=== PATIENT | male | born 1960 | race African-American/Black ===

== ENCOUNTER 2016-05-18 16:57 | Emergency (ER) | payer BC, OTHER ==
[~2016-05-18] VITALS: Ht 175.3 cm; Wt 70.3 kg
[2016-05-18 17:08] VITALS: BP 136/76
[2016-05-18] MEDS: Cyclobenzaprine 10mg Tab ORAL ONE ×2 (17:20→17:22)
[2016-05-18] MEDS ORDERED: IBUPROFEN600 MG ORAL (17:26)
[2016-05-18] MEDS ORDERED: CYCLOBENZAPRINE10 MG ORAL (17:26)
[2016-05-18 17:42] VITALS: BP 136/76
--- NOTE | 2016-05-18 21:33 | Emergency Room Report ---
History of Present Illness General Chief Complaint: Lower Back Pain or Injury Source: Patient Present Illness HPI The patient is a 56-year-old male presenting with lower back pain which began today. The patient states that he was changing his tire and performing a twisting motion when he felt lower back pain which is described as an 8/10 dull ache it is worse with movement. The patient denies prior injury to the back and denies any numbness or tingling. The patient denies any other symptoms Allergies: Coded Allergies: PENICILLINS (Verified Allergy, Unknown, 05/18/16) Patient History Past Medical History: see triage record Pertinent Family History: none Reviewed Nursing Documentation: PMH: Agreed, PSxH: Agreed Nursing Documentation-PMH Past Medical History: No Stated History Review of Systems All Other Systems: negative except mentioned in HPI Physical Exam Vital Signs Date Time Temp Pulse Resp B/P Pulse Ox O2 Delivery O2 Flow Rate FiO2 05/18/16 17:00 99.0 76 20 136/76 100 Room Air Sp02 EP Interpretation: reviewed, normal General Appearance: no apparent distress, alert, GCS 15, non-toxic Head: normocephalic, atraumatic Eyes: bilateral eye PERRL, bilateral eye normal inspection Neck: full range of motion, supple/symm/no masses Musculoskeletal: back normal, digits/nails normal, gait/station normal, normal range of motion, tender - TTP over bilat Lumbar paraspinous muscles Neurologic: alert, oriented x3, responsive, motor strength/tone normal, sensory intact, normal gait, speech normal Psychiatric: judgement/insight normal, memory normal, mood/affect normal, no suicidal/homicidal ideation Skin: normal color, no rash, warm/dry, well hydrated Medical Decision Making PA Attestation Dr. Marley is my supervising physician. Patient management was discussed with my supervising physician Diagnostic Impression: Primary Impression: Low back strain Qualified Codes: S39.012A - Strain of muscle, fascia and tendon of lower back , initial encounter ER Course The patient is a 56-year-old male presenting with lower back pain which began today. Ddx considered include but not limited to lumbar strain, degenerative disease, sprain, muscle spasm PE: vitals WNL. NAD. Back: No obvious deformity. No midline tenderness. No step-offs. TTP over bilat paraspinous muscles. Gait normal. FulL AROM The pt will be DC'ed home with prescription for motrin and flexeril. ER precautions given. Last Vital Signs Date Time Temp Pulse Resp B/P Pulse Ox O2 Delivery O2 Flow Rate FiO2 05/18/16 17:42 99.0 20 136/76 100 Room Air 05/18/16 17:08 83 Status: improved Disposition: HOME, SELF-CARE Condition: Improved Scripts Cyclobenzaprine Hcl* (FLEXERIL*) 10 Mg Tablet 10 MG ORAL THREE TIMES A DAY, #15 TAB Prov: KALA FLETCHER 05/18/16 Ibuprofen* (MOTRIN*) 600 Mg Tablet 600 MG ORAL Q8H Y for For Pain, #30 TAB 0 Refills Prov: KALA FLETCHER 05/18/16 Referrals: NOT CHOSEN [facility]/,REFERRING (PCP) Patient Instructions: Back Pain, Adult Additional Instructions: I discussed my findings with the patient. All questions and concerns have been answered. Treatment and medication compliance have been addressed. I advised the patient that they need to follow up with PMD in 3-5 days. Return to ED if pain remains or worsens, numbness or tingling occurs, new rash is noticed, fever is noticed, or if needed for any reason. Patient verbalized understanding of discharge instructions. KALA FLETCHER May 18, 2016 21:33
== END 2016-05-18 17:42 | disposition home or self-care (01) ==
LOC: EMR 17:29
DX: S39.012A Strain of muscle, fascia and tendon of lower back, initial encounter (principal); Z88.0 Allergy status to penicillin; X50.1XXA Overexertion from prolonged static or awkward postures, initial encounter; Y92.9 Unspecified place or not applicable; Y99.8 Other external cause status
CPT/HCPCS: 99284

== ENCOUNTER 2016-05-23 15:54 | Emergency (ER) | payer BC, OTHER ==
[~2016-05-23] VITALS: Ht 172.7 cm; Wt 70.3 kg
[~2016-05-23 15:54] MED LIST: CYCLOBENZAPRINE10 MG ORAL; IBUPROFEN600 MG ORAL
[2016-05-23 16:11] VITALS: BP 93/60
[2016-05-23] MEDS ORDERED: TRAMADOL HCL50 MG ORAL (16:38)
[2016-05-23] MEDS ORDERED: ROBAXIN-750750 MG PO (16:38)
--- NOTE | 2016-05-23 16:53 | Emergency Room Report ---
History of Present Illness General Chief Complaint: Back Injury Source: Patient Present Illness HPI The patient is a 56-year-old male presenting for lower back pain which began one week prior. The injury was sustained while performing a twisting motion while bending over. The patient was seen in this emergency department and discharged with a prescription for Motrin and Flexeril which the patient states has not been helping. The pain is a 10 out of 10 dull ache localized to the lower back and is worse with movements such as bending over or twisting. The patient denies any numbness or tingling of the back or lower extremities. The patient denies any other symptoms Allergies: Coded Allergies: PENICILLINS (Verified Allergy, Unknown, 05/18/16) Patient History Past Medical History: see triage record Pertinent Family History: none Reviewed Nursing Documentation: PMH: Agreed, PSxH: Agreed Nursing Documentation-PMH Past Medical History: No Stated History Review of Systems All Other Systems: negative except mentioned in HPI Physical Exam Vital Signs Date Time Temp Pulse Resp B/P Pulse Ox O2 Delivery O2 Flow Rate FiO2 05/23/16 16:06 98.1 62 16 93/60 98 Room Air Sp02 EP Interpretation: reviewed, normal General Appearance: no apparent distress, alert, GCS 15, non-toxic Head: normocephalic, atraumatic Eyes: bilateral eye PERRL, bilateral eye normal inspection ENT: hearing grossly normal, normal pharynx, normal voice Musculoskeletal: normal inspection, digits/nails normal, gait/station normal, normal range of motion, tender - TTP over lumbar paraspinous muscles Neurologic: alert, oriented x3, responsive, motor strength/tone normal, sensory intact, speech normal Psychiatric: judgement/insight normal, memory normal, mood/affect normal, no suicidal/homicidal ideation Skin: normal color, no rash, warm/dry, well hydrated Lymphatic: no adenopathy Medical Decision Making PA Attestation Dr. Manrique is my supervising physician. Patient management was discussed with my supervising physician Diagnostic Impression: Primary Impression: Low back strain ER Course The patient is a 56-year-old male presenting for lower back pain which began one week prior. Ddx considered include but not limited to lumbar strain, degenerative disease, disc herniation PE: Vitals WNL. NAD Back: No obvious deformity. No midline tenderness. + bilat lumbar paraspinal muscle tenderness. Full active range of motion. No CVA tenderness. No lesions , abrasions or ecchymosis seen. The patient states that he is driving and does not want to take any medications in the ER. The patient will be discharged home with a prescription for Robaxin and tramadol. Heat therapy instructions are given and the patient will followup with primary care physician. Physical therapy discussed. Last Vital Signs Date Time Temp Pulse Resp B/P Pulse Ox O2 Delivery O2 Flow Rate FiO2 05/23/16 16:11 98.1 80 16 93/60 98 Room Air Status: improved Disposition: HOME, SELF-CARE Condition: Improved Scripts Methocarbamol* (ROBAXIN-750*) 750 Mg Tablet 750 MG PO TID, #21 TAB 0 Refills Prov: KALA FLETCHER 05/23/16 Tramadol Hcl* (ULTRAM*) 50 Mg Tablet 50 MG ORAL Q6H Y for For Pain, #15 TAB 0 Refills Prov: [email or web address] 05/23/16 Patient Instructions: Back Pain, Adult, Heat Therapy Additional Instructions: I discussed my findings with the patient. All questions and concerns have been answered. Treatment and medication compliance have been addressed. I advised the patient that they need to follow up with PMD in 3-5 days. Return to ED if pain remains or worsens, numbness or tingling occurs, new rash is noticed, fever is noticed, or if needed for any reason. Patient verbalized understanding of discharge instructions. KALA FLETCHER May 23, 2016 16:53
[2016-05-23 16:59] VITALS: BP 93/60
== END 2016-05-23 17:00 | disposition home or self-care (01) ==
LOC: EMR 16:36
DX: S39.012A Strain of muscle, fascia and tendon of lower back, initial encounter (principal); X50.1XXA Overexertion from prolonged static or awkward postures, initial encounter; Y92.89 Other specified places as the place of occurrence of the external cause; Y99.9 Unspecified external cause status; Z88.0 Allergy status to penicillin
CPT/HCPCS: 99282

== ENCOUNTER 2016-06-03 07:10 | Emergency (ER) | payer BC, OTHER ==
[~2016-06-03] VITALS: Ht 172.7 cm; Wt 71.7 kg
[~2016-06-03 07:10] MED LIST changes: +ROBAXIN-750750 MG PO; +TRAMADOL HCL50 MG ORAL
[2016-06-03 07:31] VITALS: BP 117/86
[2016-06-03] MEDS ORDERED: Ketorolac 60mg Inj IM ONE (07:45)
--- NOTE | 2016-06-03 08:27 | Emergency Room Report ---
History of Present Illness General Chief Complaint: Lower Back Pain or Injury Source: Patient Present Illness HPI 56 YO M with 3rd visit in 2 weeks for lower back pain s/p alleged incident from getting hit with tire. Was here May 18 and May 23. Was given multiple pain meds which he states have helped, but ran out of flexeril. No imaging was done on previous visit. Patient states pain is in band across lower back. Denies lower extremity weakness, urinary/bowel incontinence, saddle anasthesia. Feels well otherwise. Denies history of IVDU and malignancy. Allergies: Coded Allergies: PENICILLINS (Verified Allergy, Unknown, 05/18/16) Patient History Past Medical History: none Past Surgical History: none Pertinent Family History: none Social History: Denies: alcohol use, drug use, smoking Immunizations: UTD Reviewed Nursing Documentation: PMH: Agreed Nursing Documentation-PMH Past Medical History: No History, Except For Hx Hypertension: Yes Review of Systems All Other Systems: negative except mentioned in HPI Physical Exam Vital Signs Date Time Temp Pulse Resp B/P Pulse Ox O2 Delivery O2 Flow Rate FiO2 06/03/16 07:22 98.6 76 16 117/86 99 Room Air Sp02 EP Interpretation: reviewed, normal General Appearance: normal inspection, well appearing, no apparent distress, alert, GCS 15, non-toxic Head: normocephalic, atraumatic ENT: normal ENT inspection, hearing grossly normal, normal voice Neck: normal inspection, full range of motion, supple, no bony tend Respiratory: normal inspection, lungs clear, normal breath sounds, no respiratory distress, no retraction, no wheezing Cardiovascular #1: regular rate, rhythm, no edema Gastrointestinal: normal inspection, normal bowel sounds, non tender, soft, no guarding, no hernia Genitourinary: no CVA tenderness Musculoskeletal: normal inspection, back normal, normal range of motion, Gladis' s Sign negative, other - Observed back: No midline mass or obvious deformity. Patient has NO ttp across midline and paravertebral areas on exam. No trauma or ecchymoses. Neurologic: normal inspection, alert, oriented x3, responsive, microstrategy bi developer III-XII nml as tested, motor strength/tone normal, speech normal Psychiatric: normal inspection, judgement/insight normal, mood/affect normal Skin: normal inspection, normal color, no rash Medical Decision Making Diagnostic Impression: Primary Impression: Low back strain Qualified Codes: S39.012D - Strain of muscle, fascia and tendon of lower back , subsequent encounter ER Course 56 YOM with third visit for lower back pain s/p trauma 3 weeks prior. LS spine series did not demonstrate acute injury IM toradol given with improvement He has a PMD appt scheduled next week Rx Flexeril refilled DC home Other X-Ray Diagnostic Results Other X-Ray Diagnostic Results : X-Ray Ordered: LS spine EP Interpretation: Yes Findings: no fractures, no dislocation, no soft tissue swelling Number of Views: 3 Last Vital Signs Date Time Temp Pulse Resp B/P Pulse Ox O2 Delivery O2 Flow Rate FiO2 06/03/16 07:31 98.6 80 16 117/86 99 Room Air Status: improved Disposition: HOME, SELF-CARE Referrals: NOT CHOSEN [facility]/,REFERRING (PCP) ARRON BARRON M.D. Jun 03, 2016 08:26
[2016-06-03] MEDS ORDERED: CYCLOBENZAPRINE10 MG ORAL (09:32)
[2016-06-03 09:44] VITALS: BP 115/85
[2016-06-03 09:45] VITALS: BP 115/85
--- NOTE | 2016-06-10 12:58 | Diagnostic Imaging Report ---
Indication: PAIN Technique: 3 views of the lumbar spine Comparison: None Findings:Bony alignment is normal. Vertebral body heights are preserved. Disc spaces are preserved. There are extensive degenerative proliferative changes. Pedicles are intact. Sacral arches are preserved. Sacroiliac joint spaces are preserved. The extraspinal soft tissues are unremarkable Impression:No acute bony trauma Degenerative changes, as described Findings previously discussed by phone with Dr. Simmons in the emergency room
== END 2016-06-03 09:46 | disposition home or self-care (01) ==
LOC: EMR 08:08
DX: S39.012D Strain of muscle, fascia and tendon of lower back, subsequent encounter (principal); I10 Essential (primary) hypertension; Z88.0 Allergy status to penicillin; W22.8XXD Striking against or struck by other objects, subsequent encounter; Y93.9 Activity, unspecified; Y92.9 Unspecified place or not applicable
CPT/HCPCS: 72020; 96372; 99283